=== PATIENT | female | born 1975 | race Caucasian/White ===

== ENCOUNTER 2019-07-10 10:19 | Outpatient (RCR) | payer OTHER, SELFPAY ==
[2019-07-13] MEDS: RHO(D) IMMUNE GLOBULIN 300 MCG SYRINGE IM (15:10)
== END 2019-10-08 23:59 | disposition home or self-care (01) ==
LOC: ANHLAB 10:19
PROVIDERS: Visit Provider Obstetrics & Gynecology
DX: Z29.13 Encounter for prophylactic Rho(D) immune globulin (principal); O36.0990 Maternal care for other rhesus isoimmunization, unspecified trimester, not applicable or unspecified; Z3A.00 Weeks of gestation of pregnancy not specified
CPT/HCPCS: 36415; 36430; 90384; 96372; J2790

== ENCOUNTER 2019-09-01 08:28 | Outpatient (RCR) | payer OTHER, SELFPAY ==
--- NOTE | 2019-08-29 11:00 | PC.NURSE ---
1033- Pt to ultrasound per wheelchair. 1058- Pt returned from ultrasound.
[2019-08-29 11:12] VITALS: BP 110/62; PULSE 76
--- NOTE | ~2019-09-01 | US_ITS ---
. EXAMINATION: US OB limited w BPP DATE: 08/29/2019 10:55 INDICATION: Decelerations. Third trimester. TECHNIQUE: Real-time pelvic ultrasound was performed. COMPARISON: None. FINDINGS: There is a single living fetus in vertex presentation. The placenta is fundal and anterior. he art rate is 132 beats per minute (bpm). The amniotic fluid index is 15.6 cm, which is normal. The following biometric data were obtained: Biparietal diameter (BPD): 8.4 cm; head circumference (HC): 32.4 cm; abdominal circumference (AC): 29 .8 cm; femur length (FL): 6.9 cm. These measurements are concordant. Estimated weight is 2452 g +/- 368 g, which correlates with 33rd percentile when 10/03/19 is use d as estimated date of delivery. As single measurements, these parameters are each equal to the following estimated gestational ages w ith ranges of +/- 2 standard deviations: BPD: 33 weeks 4 days (30 weeks 4 days - 36 weeks 5 days). HC: 36 weeks 4 days (33 weeks 6 days - 39 weeks 2 days). AC: 33 weeks 5 days (30 weeks 5 days - 36 weeks 5 days). FL: 35 weeks 4 days (32 weeks 4 days - 38 weeks 4 days). estimated gestational age based solely on measurements from this exam is 34 weeks 6 days +/- 2 weeks 3 days. Biophysical profile performed by the technologist: breathing (30 sec sustained breathing in 30 minutes): 2 out of 2 movement (3 gross body movements in 30 minutes): 2 out of 2 tone (one episode of iomajpw-igwcesjnj-izmrgfd limb movement): 2 out of 2 Amniotic fluid pocket (2 cm): 2 out of 2 Total score: 8 out of 8 IMPRESSION: 1. Single living fetus in vertex presentation. 2. Estimated weight is 2452 g +/- 368 g, which correlates with 33rd percentile when 10/03/19 is used as estimated date of delivery. 3. Biophysical profile 8 out of 8. Reviewed, dictated and finalized at location A. RELEASE WORKER IMPRESSION: 1. Single living fetus in vertex presentation. 2. Estimated weight is 2452 g +/- 368 g, which correlates with 33rd perc entile when 10/03/19 is used as estimated date of delivery. 3. Biophysical profile 8 out of 8.
[2019-09-01 09:54] VITALS: BP 101/60; PULSE 98
== END 2019-10-04 07:37 | disposition home or self-care (01) ==
LOC: ANHOBOP 08:28
PROVIDERS: Visit Provider Obstetrics & Gynecology
DX: O36.8130 Decreased fetal movements, third trimester, not applicable or unspecified (principal); Z3A.35 35 weeks gestation of pregnancy
CPT/HCPCS: 59025; 76815; 76819

== ENCOUNTER 2019-10-03 06:27 | Inpatient (IN) | payer OTHER, SELFPAY ==
[2019-10-03] VITALS (75 sets, daily range): BP systolic 85–120; BP diastolic 46–79; PULSE 54–131; RESP 14; TEMP 36.7–37.1; O2SAT 98–100; BMI 35.1
--- NOTE | 2019-10-03 07:32 | LDADM ---
This patient, Padmaja Lowe, was admitted to Labor/Delivery/Recovery 103 on 10/03/19 at 06:27. Plans for labor, pain management and were discussed with patient. Patient/family oriented to hospital policies and general routines including ID bracelet, bed and alarms, visiting hours, pain management, procedures, bathroom and other care routines, personal items, smoking policy, room service/diet and guest tray routines, security routines, and visiting hours. Patient/Family are encouraged to report perceived risks to care and to ask questions if they do not understand what they are told or what they should do. See OBIX for further documentation.
[2019-10-03] MEDS: LACTATED RINGERS 1,000 ML 125 ML IV CONT (07:49)
[2019-10-03 08:04] LABS: Basophils Percent Auto 0.5 % (0.2-1.2); Eosinophils Absolute Auto 0.1 K/mm3 (0-0.3); Eosinophils Percent Auto 1.1 % (0-4.4); Hematocrit 33.6 % (37.0-47.0); Hemoglobin 11.2 g/dL (12.0-15.0); Immature Granulocyte Absolute 0.12 K/mm3 (0.00-0.031); Immature Granulocyte Percent A 1.5 % (0-0.5); Lymphocytes Absolute Auto 1.92 K/mm3 (0.9-3.2); Lymphocytes Percent Auto 23.7 % (18.3-44.2); Mean Corpuscular HGB Conc 33.3 g/dl (32-36); Mean Corpuscular Hemoglobin 29.8 pg (26-34); Mean Corpuscular Volume 89.4 fl (80-100); Monocytes Absolute Auto 0.8 K/mm3 (0.1-0.6); Neutrophils Absolute Auto 5.1 K/mm3 (1.3-6.7); Neutrophils Percent Auto 63.2 % (45.5-73.1); Platelet Count Result 216 k/mm3 (150-375); Red Blood Count 3.76 M/mm3 (4.2-5.4); Red Cell Distribution Width 14.2 % (11.5-14.5); White Blood Count 8.1 K/mm3 (4.5-10.0)
--- NOTE | 2019-10-03 08:50 | WPDOBADMIT ---
Obstetrics - Admit Note Admission Note: record reviewed. Additions to the history and/or subsequent changes in the physical findings follow. 43 y8/o at 40 weeks here for induction of labor. GBS neg. AVSS NST reactive TOCO: contractions irregularly ABD soft, nontender, gravid, vertex EXT nontender Cervix 3/50/-2. AROM with clear fluid. IUPC placed. A: IUP at term, desiring induction of labor. P: Oxytocin. Anticipate .
[2019-10-03 09:25] LABS: Rapid Plasma Reagin Non-Reactive (NonReactive)
[2019-10-03] MEDS: SODIUM CHLORIDE 0.9% IV 300 ML 600 ML I-UTERINE (11:23)
--- NOTE | 2019-10-03 12:10 | PM.OBPNLAB ---
Pain Control Date/time seen: 10/03/19 12:54 Comments: Feeling more contractions. Pelvic Exam Dilation (cm): 4 Effacement (%): 50 station: -2 Comments: AVSS NST reactive with occasional variables. TOCO: contractions every 3-5 min Continue labor. Amnioinfusion for occasional variable decelerations.
--- NOTE | 2019-10-03 19:36 | PM.OBPRVD ---
OB - Delivery Note Procedure Delivery date: 10/03/19 Procedure: Induction method: AROM and per pitocin protocol Delivery monitor: external FHT, external uterine and internal FHT Route of delivery: Laceration description: Perineal - 2nd Degree Delivery repair: vicryl (3-0) Specimen: Yes (cord blood) Estimated blood loss (mL): 200 Anesthesia type: Epidural Disposition: PACU Complications: None Narrative: Zzwpn-[id number]-odbt-old 7 para 4024 at 40 weeks gestation who presented to the hospital for induction of labor. Oxytocin was administered intravenously. Amniotomy was performed with return of clear fluid. She received an epidural for pain control. Her labor progressed. Her cervix dilated to 7 cm. She had a sudden urge to push and delivered precipitously. The 's head to the perineum, followed by the body, just as I arrived to the room. The nose and mouth were bulb suctioned. After a delay, the cord was clamped and cut. The infant was handed off the field. Cord blood was collected. The placenta delivered spontaneously and was grossly normal in appearance. The usual 3 vessel cord was noted. A second degree midline perineal laceration was sustained. This was reapproximated using 3 0 Vicryl in the usual layered fashion. Excellent hemostasis resulted as did excellent reapproximation of the normal anatomy. Needle and instrument counts were correct. The patient was taken to recovery room in stable condition. The infant went to the nursery in stable condition. I was present and scrubbed for the entire delivery. Baby Date of : 10/03/19 Time of : 15:09 Weeks of gestation at delivery: 40 gender: Female Weight (pounds): 7 Weight (ounces): 10 presentation: vertex position: Left Occiput Transverse Placenta delivery description: Spontaneous and Normal Configuration cord vessel description: 3 Vessels score one minute: 8 score five minutes: 9
--- NOTE | 2019-10-03 19:38 | P.DS_ITS ---
DS: Diagnosis Discharge Diagnosis (1) (normal spontaneous vaginal delivery): Code(s): O80 - Encounter for full-term uncomplicated delivery Status: Acute Assessment and Plan: IUP at 40 weeks OB - DS: Summary OB Procedures : None OB Procedures Intrapartum: Spontaneous Vag Delivery OB Procedures: : None Time Spent with Patient Time attestation: Total time spent providing and/or coordinating discharge services: DS: Data Data Completed and Pending Labs on day of discharge: Labs from last 24 hours 10/03/19 10/03/19 10/03/19 07:44 07:44 07:44 WBC 8.1 RBC 3.76 L Hgb 11.2 L Hct 33.6 L MCV 89.4 MCH 29.8 MCHC 33.3 RDW 14.2 Plt Count 216 MPV 11.0 H Immature Gran % (Auto) 1.5 H Neut % (Auto) 63.2 Lymph % (Auto) 23.7 [place] % (Auto) 10.0 H Eos % (Auto) 1.1 Baso % (Auto) 0.5 Lymph # (Auto) 1.92 [place] # (Auto) 0.8 H Eos # (Auto) 0.1 Baso # (Auto) 0.0 Abs Immat Gran (auto) 0.12 H Absolute Neuts (auto) 5.1 Absolute Nucleated RBC 0.0 Nucleated RBC % 0.0 RPR Non-reactive Blood Type O Negative Antibody Screen Negative Discharge Plan Discharge Attending physician on discharge: Cullen Beavers Discharging Clinician: Cullen Beavers Patient Disposition: Home, Self-Care Activity: pelvic rest Diet: regular Discharge Instructions: Call or return if temperature above 100.4? F, increased abdominal pain, increased vaginal bleeding or any new problems. Stand Alone Forms: General Discharge Information Follow-up/Referrals: Cullen Beavers MD [Physician] - (6 weeks) Discharge Medications: New ibuprofen 400 mg tablet 400 mg PO Q6H Qty: 30 RF: 0 hydrocodone-acetaminophen [Thayer] 5-325 mg tablet 1 tablet PO Q6H PRN (Reason: pain) Qty: 20 RF: 0 No Action ergocalciferol (vitamin D2) [Vitamin D2] 1,250 mcg (50,000 unit) Capsule 50,000 unit PO WEEKLY RF: 0 PNV cmb#95-ferrous fumarate-FA [] 28 mg iron- 800 mcg Tablet 1 tablet PO DAILY RF: 0 Date of admission: 10/03/19 06:27 Primary Care Provider: Coleman Corey Admitting Provider: Cullen Beavers Attending physician on admission: Cullen Beavers
[2019-10-04 05:35] LABS: Hemoglobin 11.1 g/dL (12.0-15.0)
[2019-10-04 08:40] VITALS: BP 111/61; PULSE 63; RESP 18; TEMP 36.8; O2SAT 98
[2019-10-04] MEDS: MULTIVIT/MIN/PREN/FOL AC/IRON TABLET 1 TAB PO (08:47)
[2019-10-04] MEDS: DOCUSATE SODIUM 100 MG CAPSULE PO (08:47)
--- NOTE | 2019-10-04 08:50 | PM.OBPNVD ---
OB - PN: Subj Subjective Date/time seen: 10/04/19 0850 Narrative: Pain OK. OB - PN: Obj Data Labs CBC & Chem 7: 10/04/19 04:55 Labs: Laboratory Results - last 24 hr 10/04/19 10/04/19 04:55 04:55 Hgb 11.1 L Hct 33.0 L Blood Type O Negative Antibody Screen Negative Screen Negative Baby's Blood Type O pos Baby's SALEEM Negative Doses of RhIg Required 1 OB - PN A/P Plan Comments: A: PPD#1, doing well. P: Routine care. Exam Psych: Other: AVSS ABD soft, nontender, fundus firm EXT nontender
--- NOTE | 2019-10-04 12:00 | PC.NURSE ---
Consulted with patient, mother reports she has tenderness with feeding and a small ridge to nipple when comes off. Discussed may have a shallow latch causing discomfort. Reviewed infant feeding cues, frequencies, duration of feedings, feeding elimination flow sheet, and signs of adequate intake. Demonstrated stimulation techniques to wake infant for feeding. Assisted with to breast. Reviewed positioning/alignment in cross cradle, holding breast in U hold and guided asymmetrical latch on. was able to latch correctly and more deeply. Mother reports she can feel this latch is different and no discomfort. nursed eagerly, with steady draws and frequent swallowing noted. Reviewed signs of a correct latch, effective nursing and suck swallow ratio. was able to maintain latch without discomfort to mother. Nipple care reviewed. Suggested mother continue to hold breast during the entire feeding to assist infant maintaining deep latch. Instructed mother to call out for RN assistance if she is unable to latch for feeding or she has discomfort with nursing. Instructed feeding should be initiated three hours from start of last feeding or if feeding cues are noted before. Mother voiced understanding of information shared.
[2019-10-04] MEDS: RHO(D) IMMUNE GLOBULIN 300 MCG SYRINGE IM (15:17)
[2019-10-04 20:00] VITALS: BP 107/69; PULSE 64; RESP 15; TEMP 36.8; O2SAT 99
[2019-10-05] MEDS: IBUPROFEN 400 MG TABLET PO (05:43)
[2019-10-05] MEDS: MULTIVIT/MIN/PREN/FOL AC/IRON TABLET 1 TAB PO (08:41)
--- NOTE | 2019-10-05 08:58 | PM.OBPNVD ---
OB - PN: Subj Subjective Date/time seen: 10/05/19 08:58 Narrative: Pain OK. Would like to go home. OB - PN: Obj Data Labs CBC & Chem 7: 10/04/19 04:55 Labs: Laboratory Results - last 24 hr 10/04/19 04:55 Blood Type O Negative Antibody Screen Negative Screen Negative Baby's Blood Type O pos Baby's SALEEM Negative Doses of RhIg Required 1 OB - PN A/P Plan Comments: A: PPD#2, doing well. P: Home to f/u 6 weeks. Exam Psych: Other: AVSS ABD soft, nontender, fundus firm EXT nontender
--- NOTE | 2019-10-05 11:13 | PC.NURSE ---
Discharge instructions given to pt. No questions or concerns at this time. Pt wheeled out to awaiting vehicle.
--- NOTE | 2019-10-05 19:15 | PC.NURSE ---
Mother is able to independently latch infant with appropriate positioning/alignment. She denies any nipple discomfort, is feeding as required and waking to feed if needed. has had 8 effective feedings in the past 24 hours, and is currently meeting outcomes for weight, output, jaundice and feeding frequencies. Mother states she feels confident to continue effective at home. Reviewed transition to breast milk, signs of adequate intake, and engorgement/relief. Instructed to call ICP if intake/output less than required. Reviewed regular medications mother is taking. Information provided per Lorelei. Reviewed community resources on the [facility] website and in the Mom/Baby guide. Information on outpatient services provided. Mother has no further questions at this time.
[2019-10-06 10:34] VITALS: BP 108/70; PULSE 64; RESP 20; TEMP 36.9
== END 2019-10-05 11:10 | disposition home or self-care (01) | DRG 807 ==
LOC: ANHLDR 06:33 → ANHOB2 18:35
PROVIDERS: Admitting Provider Obstetrics & Gynecology; PCP Internal Medicine; Visit Provider Obstetrics & Gynecology
DX: O99.02 Anemia complicating childbirth (principal); Z37.0 Single live birth; Z3A.40 40 weeks gestation of pregnancy; D64.9 Anemia, unspecified; O36.8330 Maternal care for abnormalities of the fetal heart rate or rhythm, third trimester, not applicable or unspecified; O70.1 Second degree perineal laceration during delivery
CPT/HCPCS: 36415; 85014; 85018; 85025; 86592; 86850; 86900; 86901; 90384; A9270; J2590; J2790; J7030; J7120

== ENCOUNTER 2021-11-06 10:01 | Outpatient (CLI) | payer BC, SELFPAY ==
--- NOTE | ~2021-11-06 | XR_ITS ---
EXAMINATION: XR chest 2V 11/06/2021 10:24 INDICATION: Shortness of breath PROCEDURE: 2 view chest COMPARISON: 05/27/2017 FINDINGS: The lungs are clear. The cardiomediastinal silhouette is within normal limits. There are no pleural effusions. There is no pneumothorax suspected. IMPRESSION: 1: NO ACUTE CARDIOPULMONARY DISEASE. Reviewed, dictated and finalized at location B.
== END 2021-11-06 10:02 ==
PROVIDERS: PCP Internal Medicine; Visit Provider Physician Assistant
DX: R06.02 Shortness of breath (principal)
CPT/HCPCS: 71046

== ENCOUNTER 2022-03-06 09:19 | Outpatient (CLI) | payer BC, SELFPAY ==
--- NOTE | 2022-03-08 16:20 | P.PCNPFT_ITS ---
PFT Procedure Performed PFT Procedure Performed Spirometry with Pre/Post Bronchodilator Plethysmography (Lung Vol) Diffusing Cap (DLCO) Flow Vol Loop PFT Interpretation DOS: 03/06/2022 REQUESTING: Dr Collado REASON FOR TESTING: Shortness of breath PULMONARY FUNCTION TESTS Results are reliable and reproducible. Spirometry: Pre-bronchodilator FEV1 is 119% predicted, 3.31 L, normal. Pre- bronchodilator FVC is 116% predicted, 3.99 L, normal. FEV1/FVC ratio is 83%, normal. The AGH30-00% is 129% predicted, 3.67 L. After bronchodilator therapy there is no increase in flows. Forced vital capacity decreased by 4%, still in the normal range, 112% predicted, 3.84 L. The FEV1 did not change. The FEF25- 75% increased 10%, 4.04 L. Lung volumes: Total lung capacity is 129%, consistent with mild hyperinflation. ERV is 69%, 0.74 L, normal. Residual volume moderately increased 142%, 2.35 L. RV/TLC is 37% mildly increased. Airway resistance 128% mildly elevated. Diffusion: DLCO 84%. Flow volume loop: Normal. IMPRESSION: Normal spirometry without change after bronchodilator administrat ion, mild hyperinflation, mild air trapping with normal diffusion. No change with bronchodilator. Nonspecific pattern. Tamiko Ortega MD
== END 2022-03-06 09:20 | disposition home or self-care (01) ==
LOC: ANHPFT 09:20
PROVIDERS: PCP Internal Medicine; Visit Provider Internal Medicine Pulmonary Disease
DX: R06.02 Shortness of breath (principal)
CPT/HCPCS: 94060; 94726; 94729

== ENCOUNTER 2022-12-18 11:15 | Outpatient (CLI) | payer BC, SELFPAY ==
[2022-12-18 12:35] LABS: Bacteria Urine 1+ /hpf; Need Manual Microscopic Reviewed; Non Pathogenic Casts 0-2; RBC Urine >100 /hpf (0-2); Squamous Epithelial Cell Urine Moderate /hpf (Few); WBC Urine 51-100 /hpf (0-3)
[2022-12-18 12:36] LABS: Appearance Urine Turbid (Clear); Bilirubin Urine Negative (Negative); Blood Urine 3+ (Negative); Color Urine Orange (Yellow); Glucose Urine UA Negative (Negative); Ketones Urine Negative (Negative); Leukocyte Esterase Ur 2+ LEU/UL (NEGATIVE); Nitrate Urine Negative (Negative); Protein Urine 2+ mg/dL (Negative); Specific Grav Ur 1.012 (1.001-1.035)
[2022-12-18 12:38] LABS: Add Urine Microscopic? YES
== END 2022-12-18 11:16 | disposition home or self-care (01) ==
LOC: ANHLAB 11:17
PROVIDERS: PCP Internal Medicine; Visit Provider Physician Assistant
DX: R30.0 Dysuria (principal)
CPT/HCPCS: 81001; 87086

== ENCOUNTER 2023-03-22 11:30 | Outpatient (CLI) | payer BC, SELFPAY ==
--- NOTE | ~2023-03-22 | XR_ITS ---
AP view of the pelvis and AP and lateral views of the right hip Clinical history: Pain Findings: No acute fracture or dislocation is seen. Osseous alignment is anatomic. Bilateral hip and SI joint spaces are preserved. Soft tissues are unremarkable. Impression: No significant abnormality is seen. Reviewed, dictated and finalized at [facility]. Impression: No significant abnormality is seen.
--- NOTE | ~2023-03-22 | XR_ITS ---
Left Shoulder Technique: AP and scapular Y views were obtained. Clinical History: Pain Findings: No fracture or dislocation is seen. Osseous alignment is anatomic. The glenohumeral and acr omioclavicular joint spaces are preserved. Soft tissues are unremarkable. Impression: Unremarkable left shoulder radiographs. Reviewed, dictated and finalized at [facility]. Impression: Unremarkable left shoulder radiographs.
== END 2023-03-22 11:31 | disposition home or self-care (01) ==
PROVIDERS: PCP Internal Medicine; Visit Provider Physician Assistant
DX: M25.551 Pain in right hip (principal); M25.512 Pain in left shoulder
CPT/HCPCS: 73030; 73502

== ENCOUNTER 2023-07-22 11:16 | Outpatient (CLI) | payer BC, SELFPAY ==
--- NOTE | ~2023-07-22 | XR_ITS ---
2 views of the right clavicle CLINICAL HISTORY: Popping, clicking FINDINGS: No fracture or dislocation seen. Joint spaces appear intact. Soft tissues are unremarkable. IMPRESSION: No significant abnormality seen. Reviewed, dictated and finalized at [facility]. LOTINE TRIMMER
== END 2023-07-22 11:17 | disposition home or self-care (01) ==
PROVIDERS: PCP Internal Medicine; Visit Provider Physician Assistant
DX: Q74.0 Other congenital malformations of upper limb(s), including shoulder girdle (principal)
CPT/HCPCS: 73000

== ENCOUNTER 2023-07-29 12:32 | Outpatient (CLI) | payer BC, SELFPAY ==
--- NOTE | ~2023-07-29 | CT_ITS ---
EXAMINATION: CT cervical spine wo con DATE: 07/29/2023 12:55 INDICATION: Right neck pain. TECHNIQUE: Computed tomography (CT) of the cervical spine was performed without intravenous contrast. Automated exposure control and iterative reconstruction technique were employed. The dose-length pro duct was 322.82 mGy-cm. COMPARISON: None. FINDINGS: There is 6 degrees dextrocurvature of cervical spine. Vertebral body heights and interverte bral disc heights are normal. The following disc levels are specifically discussed: C2-C3: There is no uncovertebral joint osteoarthritis. There is no facet joint osteoarthritis. There is no neural foraminal stenosis. There is no central canal stenosis. C3-C4: There is mild bilateral uncovertebral joint osteoarthritis. There is mild left facet joint ost eoarthritis. There is no neural foraminal stenosis. There is no central canal stenosis. C4-C5: There is no uncovertebral joint osteoarthritis. There is mild left facet joint osteoarthritis. There is no neural foraminal stenosis. There is no central canal stenosis. C5-C6: There is mild left uncovertebral joint osteoarthritis. There is severe left facet joint osteoa rthritis. There is mild left neural foraminal stenosis. There is no central canal stenosis. C6-C7: There is no uncovertebral joint osteoarthritis. There is no facet joint osteoarthritis. There is no neural foraminal stenosis. There is no central canal stenosis. C7-T1: There is no uncovertebral joint osteoarthritis. There is mild right and severe left facet join t osteoarthritis. There is no neural foraminal stenosis. There is no central canal stenosis. IMPRESSION: 1. Mild cervical spondylosis. Reviewed, dictated and finalized at location E. OL BUSINESS ADMINISTRATOR
== END 2023-07-29 12:33 ==
LOC: MICIMG 12:33
PROVIDERS: PCP Physician Assistant; Visit Provider Physician Assistant
DX: M47.892 Other spondylosis, cervical region (principal)
CPT/HCPCS: 72125

== ENCOUNTER 2024-03-09 19:34 | Emergency (ER) | payer BC, SELFPAY ==
[2024-03-09 19:56] VITALS: BP 110/66; PULSE 82; RESP 20; TEMP 36.6; O2SAT 100
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
== END 2024-03-09 20:17 | disposition home or self-care (01) ==
PROVIDERS: Emergency Provider Nurse Practitioner; PCP Physician Assistant
DX: T75.1XXA Unspecified effects of drowning and nonfatal submersion, initial encounter (principal); Y93.16 Activity, rowing, canoeing, kayaking, rafting and tubing
CPT/HCPCS: 99211; G0463

== ENCOUNTER 2024-08-08 08:13 | Outpatient (CLI) | payer BC, SELFPAY ==
--- NOTE | ~2024-08-08 | MMUS_ITS ---
EXAMINATION: MM diagnostic corin BI w evgeny, US breast RT complete HISTORY: Right breast pain and nipple discharge TECHNIQUE: Additional 3-D tomosynthesis images of the breasts were performed and synthetic 2-D images were generated. CAD analysis was submitted and interpreted. High resolution complete right breast ul trasound was performed. COMPARISON: Comparison to multiple prior studies sequentially, with oldest reviewed study dated 06/23. BREAST PARENCHYMAL COMPOSITION: Not dense: There are scattered areas of fibroglandular density. FINDINGS: MAMMOGRAPHIC FINDINGS: There are no suspicious masses, calcifications or architectural distortion in either breast to sugges t malignancy. ULTRASOUND: Complete US of all 4 quadrants of the right breast/s and retroareolar region was reviewed. Normal het erogeneous echotexture without focal solid or cystic mass. IMPRESSION: 1. No evidence for malignancy in either breast. 2. Routine yearly screening mammogram and regular clinical breast examination are recommended. BI-RADS Category 1: Negative Reviewed, dictated and finalized at location B. STANCE SPECIALIST IMPRESSION: 1. No evidence for malignancy in either breast. 2. Routine yearly screening mammogram and regular clinical breast examination a re recommended. BI-RADS Category 1: Negative
== END 2024-08-08 08:14 | disposition home or self-care (01) ==
LOC: MICIMG 08:14
PROVIDERS: PCP Internal Medicine; Visit Provider Obstetrics & Gynecology
DX: N64.4 Mastodynia (principal); N64.52 Nipple discharge
CPT/HCPCS: 76641; 77062; 77066; G0279

== ENCOUNTER 2024-08-14 19:18 | Emergency (ER) | payer BC, SELFPAY ==
--- NOTE | 2024-08-14 19:21 | ED.FEMALEGU ---
HPI - Female Genitourinary General Chief complaint: Urogenital-Female Stated complaint: UTI Time Seen by Provider: 08/14/24 19:32 Source: patient, RN notes reviewed and old records reviewed Mode of arrival: ambulatory Limitations: no limitations History of Present Illness HPI Narrative: 48-year-old female presents to the [facility] with concerns for a UTI. Patient reports frequency, urgency and burning since this afternoon. Recently had urologic since surgery, 2 weeks approximately. Patient denies significant abdominal pain, denies fevers. No back pain. Related Data Home Medications ?Medication ?Instructions ?Recorded ?Confirmed ?Last Taken ?Type fluoxetine 20 mg/5 mL (4 mg/mL) mg 08/14/24 Unknown History oral solution trazodone 50 mg tablet mg 08/14/24 Unknown History Allergies Allergy/AdvReac Type Severity Reaction Status Date / Time codeine AdvReac Intermediate Nausea Verified 08/14/24 19:19 methylprednisolone AdvReac Intermediate PALPATATIONS Verified 08/14/24 19:19 ,LIGHT HEADEDNESS Review of Systems Review of Systems: All systems reviewed & are unremarkable except as noted in HPI and below Constitutional: Constitutional: Reports no additional constitutional complaints ENT: Reports system reviewed and no additional complaints, except as documented Cardiovascular: Cardiovascular: Reports no additional cardiovascular complaints, Denies chest pain and Denies dyspnea Respiratory: Respiratory: Reports no additional respiratory complaints, Denies chest congestion, Denies cough and Denies dyspnea Genitourinary: Genitourinary: Reports as per HPI Musculoskeletal: Musculoskeletal: Reports no additional musculoskeletal complaints Integumentary/Breasts: Skin/Breast: Reports system reviewed and no additional complaints, except as docu [facility] Past Medical History Medical History Cholecystectomy planned (~03/2017) Brain concussion TMJ disease Surgical History Surgical History History of tonsillectomy and adenoidectomy Bariatric surgery status Family History Family History Father Family history of transient ischemic attacks Failure to thrive Mother Family history of lung cancer Family history of malignant neoplasm of breast in first degree relative Sibling Patient's sister is in good health Social History Social History Smoking status: Never smoker Second hand tobacco smoke exposure: No Alcohol intake: current Substance use: never Substance use type: does not use Do You Feel Safe in your Home?: Yes Lack of Transportation: No Lack of Food: Never True Current Housing: Decline to Answer Concerned About Future Housing: Decline to Answer Difficulty Paying Gas/Electric Bills: Decline to Answer Difficulty Paying for Meds: Decline to Answer Currently Unemployed: Decline to Answer Education: Decline to Answer Difficulty w/ Childcare or Family Care: Decline to Answer Living arrangements: with family Occupation/Education: occupation Additional occupation/education comments: [email or web address] Gender identity (if verbalized by the patient): Female Spiritual care concerns: No Comments At the time of my signature, I reviewed and agree with the nursing past medical, surgical, social, and family history. There is no relevant family history pertinent to the patient complaint. Exam Const: General: cooperative, healthy appearing, comfortable, no acute distress, well developed, alert and well nourished Nutritional Appearance: well nourished Orientation/consciousness: patient oriented x3 Limitations: no limitations HENMT: Head: normal to inspection Face and sinus: normal facial exam and face symmetric Eyes: General: appearance normal, both eyes and all related structures Neck: Neck: normal visual inspection, full ROM, no lymphadenopathy and no meningeal signs Chest: Chest palpation & inspection: normal inspection of the chest Resp: Effort & Inspection: normal respiratory effort and able to speak in complete sentences Cardio: Rate: regular rate GI: GI Palp: No abdominal tenderness : General: Yes no CVA tenderness Skin: General skin exam: normal color and no rashes or lesions noted Neuro: General: patient oriented x3, gait normal, moves all extremities and no meningeal signs Cognition (Neuro): normal cognition Speech: normal speech Gait exam (Neuro): Normal gait present Extrem: General: normal to inspection, full ROM, capillary refill normal and normal gait Psych: Appearance: grossly normal and well kempt Mental Status: mental status grossly normal Speech and movement: Normal speech and movement present and Clear speech present Affect: normal affect Attitude: cooperative Course Course Level of Care: Express Care Visit Vital Signs Vital signs: Vital Signs Temperature 97.9 F 08/14/24 19:34 Pulse Rate 59 L 12/23/24 19:34 Respiratory Rate 16 08/14/24 19:34 Blood Pressure 126/73 08/14/24 19:34 Pulse Oximetry 99 08/14/24 19:34 Oxygen Delivery Room Air 08/14/24 19:34 Temperature 97.9 F 08/14/24 19:34 Pulse Rate 59 L 08/14/24 19:34 Respiratory Rate 16 08/14/24 19:34 Blood Pressure 126/73 08/14/24 19:34 Pulse Oximetry 99 08/14/24 19:34 Oxygen Delivery Room Air 08/14/24 19:34 Reviewed MDM - Female Genitourinary MDM Narrative Medical decision making narrative: Patient sitting comfortably in exam room. Nontoxic, vitals stable. Patient presents with concerns for UTI. Positive leukocytes, positive blood, patient appropriate for outpatient treatment with antibiotic and close follow-up, will culture. Discharge instructions reviewed with patient, as well as provided in writing per nursing staff. The instructions also include specific and strict return/GO TO THE ER as well as f/u information. All questions have been answered, and the patient deny any further questions with discharge and discharge plan. Some parts of this dictation were generated by voice recognition software and may contain typographical and/or grammatical inaccuracies. Differential Diagnosis Differential diagnosis: Likely urinary tract infection and cystitis Lab Data Labs: Lab Results 08/14/24 Range/Units 19:35 POC Urine Color Yellow POC Urine Clarity Clear POC Urine pH 7.0 POC Ur Specif [place] 1.025 POC Urine Protein 1+ (Negative) POC Ur Glucose (UA) Negative (Negative) POC Urine Ketones Negative (Negative) POC Urine Blood 1+ (Negative) POC Urine Nitrite Negative (Negative) POC Urine Bilirubin Negative (Negative) POC Urine Urobilinogen 1.0 POC U Leukocyte Esteras 3+ (Negative) Reviewed Critical Care Time Critical Care Time Critical Care Time: No Discharge Plan Discharge Clinical Impression: Urinary tract infection Qualifiers: Urinary tract infection type: acute cystitis Hematuria presence: with hematuria Qualified Code(s): N30.01 - Acute cystitis with hematuria Patient Disposition: Home, Self-Care Condition: Stable Instructions: Antibiotic Form, Urinary Tract Infection in Women (ED) Additional Instructions: Follow-up with your urologist Follow-up with primary care provider Take antibiotics as prescribed While on antibiotics is important to eat a yogurt a day or take a probiotic to reduce some side effects Increased water intake Take Tylenol as needed for pain Today your urine dip showed a probability of a UTI. You have been prescribed an antibiotic. Your urine will be sent to our lab for a culture. If at that time a bacteria grows that is not covered by the antibiotic prescribed you will be notified. Follow-up with primary care For new or worsening symptoms go directly to the emergency room Patient Language: Romansh Prescriptions: New amoxicillin-pot clavulanate 875-125 mg tablet 1 tablet PO Q12H Qty: 10 0RF No Action fluoxetine 20 mg/5 mL (4 mg/mL) solution trazodone 50 mg tablet famotidine 40 mg tablet 40 mg PO DAILY Qty: 90 2RF ergocalciferol (vitamin D2) 1,250 mcg (50,000 unit) capsule 1,250 mcg PO WEEKLY Qty: 12 0RF ferrous sulfate 325 mg (65 mg iron) tablet 325 mg PO DAILY Qty: 90 1RF Follow-up/Referrals: Jerzy Colunga DO [Primary Care Provider] - 1 Week ([facility] follow-up) Time of Disposition: 19:38
[2024-08-14 19:34] VITALS: BP 126/73; PULSE 59; RESP 16; TEMP 36.6; O2SAT 99
[2024-08-14 19:37] LABS: EDUAAPPEAR Clear; EDUABILI Negative (Negative); EDUABLOOD 1+ (Negative); EDUACOLOR1 Yellow; EDUAGLUCOSE Negative (Negative); EDUAKETONE Negative (Negative); EDUALEUKO 3+ (Negative); EDUANITRATE Negative (Negative); EDUAPROTEIN 1+ (Negative); EDUASPGRAVITY 1.025
== END 2024-08-14 19:42 | disposition home or self-care (01) ==
PROVIDERS: Emergency Provider Nurse Practitioner; PCP Internal Medicine
DX: N30.01 Acute cystitis with hematuria (principal); Z79.899 Other long term (current) drug therapy
CPT/HCPCS: 81003; 87086; 99213; G0463

== ENCOUNTER 2025-06-21 11:36 | Outpatient (CLI) | payer BC, SELFPAY ==
--- NOTE | ~2025-06-21 | XR_ITS ---
EXAMINATION: XR knee RT 3V, 06/21/2025 11:54 CDT HISTORY: M25.569 - Pain in unspecified knee COMPARISON: No comparisons available. Findings: No acute fracture or malalignment. No significant degenerative changes. Soft tissues unremarkable. Impression: No acute fracture or malalignment. Reviewed, dictated and finalized at location P. Impression: No acute fracture or malalignment.
--- OUTSIDE RECORDS SUMMARY | 2025-06-21 12:46 | XMS_ITS | Clinical Summary ---
Author Organization [facility] [place] [address] Address [address] [place] [address] Care Team Providers Care General Dentist/Owner Name Role Phone Coleman Corey MD Primary Care Provider [phone] Allergies Active Allergy Reactions Criticality Noted Date Comments Codeine Nausea only Low 03/19/2017 Social History Tobacco Use Types Packs/Day Years Used Date Smoking Tobacco: Never Assessed Personal Safety Answer Date Recorded Getting School Help Needed Not on file 11/06 Comments Unknown Sex and Gender Information Value Date Recorded Sex Assigned at Not on file Legal Sex Female 10:21 AM CDT Gender Identity Not on file Sexual Orientation Not on file Last Filed Vital Signs Vital Sign Reading Time Taken Comments Blood Pressure - - Pulse - - Temperature - - Respiratory Rate - - Oxygen Saturation - - Inhaled Oxygen Concentration - - Weight 113.4 kg (250 lb) 03/19/2017 2:11 PM CDT Height 162.6 cm (5' 4) 03/19/2017 2:11 PM CDT Body Mass Index 42.91 03/19/2017 2:11 PM CDT Plan of Treatment Not on file Insurance CHO[employer] PLUS Care Teams General Dentist/Owner Relationship Specialty Start Date End Date Coleman Corey MD [address] [facility] [address] [place] [address] PCP - General Internal Medicine 03/03/17
--- OUTSIDE RECORDS SUMMARY | 2025-06-21 12:46 | XMS_ITS | Clinical Summary ---
Author Organization [facility] Administrative Offices Address [address] [place] [address] Care Team Providers Care Appliance Assembler Name Role Phone Unavailable Primary Care Provider Unavailabl e Allergies Active Allergy Reactions Criticality Noted Date Comments Codeine Nausea and Vomiting High 09/16/2010 Medications cyclobenzaprine (FLEXERIL) 10 mg tablet TAKE 1 TABLET BY MOUTH EVERY DAY AT BEDTIME NEEDED FOR MUSCLE SPASMS 10/14/2021 Active melatonin 3 mg Tablet Take by mouth nightly as needed for Insomnia. Active calcium citrate-vitamin D3 (CITRACAL WITH VIT D) 200 mg-6.25 mcg (250 unit) Tablet Take by mouth. Active multivitamin,tx -iron-ca-min (THERA-M) 27-0.4 mg Tablet Take 1 Tablet by mouth daily. Active ondansetron (ZOFRAN ODT) 4 mg Tablet, Rapid Dissolve Take 1 Tablet (4 mg) by mouth every 8 hours as needed for Nausea/Emesis . Dissolve tablet on top of tongue, then swallow with saliva. 30 Tablet 1 01/30/2022 Active FLUoxetine (PROzac) 20 mg capsule Take 20 mg by mouth daily. 02/19/2022 Active Active Problems Problem Noted Date Diagnosed Date Atherosclerotic heart diseas e of [place] coronary artery without angina pectoris 12/10/2021 Palpitations 12/10/2021 Obesity 06/07/2008 Family History Medical History Relation Name Comments Bipolar Disorder Father Kidney Disease Father Stroke Father Breast Cancer Mother Lung Cancer Mother Colon Cancer Neg Hx Ovarian Cancer Neg Hx Pancreatic Cancer Neg Hx Prostate Cancer Neg Hx Uterine Cancer Neg Hx Relation Name Status Comments Father Mother Social History Tobacco Use Types Packs/Day Years Used Date Smoking Tobacco: Never Smokeless Tobacco: Never Alcohol Use Standard Drinks/Week Comments Yes 1 (1 standard drink = 0.6 oz pur e alcohol) Comments No Sex and Gender Information Value Date Recorded Sex Assigned at Not on file Legal Sex Female 10:41 PM CDT Gender Identity Not on file Sexual Orientation Not on file Last Filed Vital Signs Vital Sign Reading Time Taken Comments Blood Pressure 118/68 03/03/2022 10:57 AM CDT Pulse 75 12/25/2021 2:02 PM CDT Temperature 36.3 C (97.4 F) 12/25/2021 2:02 PM CDT Respiratory Rate - - Oxygen Saturation 99% 12/25/2021 2:02 PM CDT Inhaled Oxygen Concentration - - Weight 82.1 kg (181 lb) 03/03/2022 10:57 AM CDT Height 160 cm (5' 3) 03/03/2022 10:57 AM CDT Body Mass Index 32.06 03/03/2022 10:57 AM CDT Plan of Treatment Health Maintenance Due Date Last Done Comments DTAP/TDAP/TD VACCINES (1 - Tdap) 12/08/1994 HEPATITIS B VACCINES (1 of 3 - 19+ 3-dose series) 11/21 HPV/Cotest (21-29) 12/08/1996 CERVICAL CANCER SCREENING 12/08/2005 HPV/Cotest (30-65) 12/08/2005 PAP SMEAR 12/08/2005 BREAST CANCER SCREENING 2015 COLORECTAL SCREENING 12/08/2020 Colorectal Cancer Screening 12/08/2020 FIT-DNA Q 3 years 12/08/2020 FIT/FOBT Q 1 year 12/08/2020 Flex Sig/CT Colonography Q 5 years 12/08/2020 INFLUENZA VACCINE (#1) 2025 Insurance [facility] BLUE ACCESS CHOICE
--- OUTSIDE RECORDS SUMMARY | 2025-06-21 12:46 | XMS_ITS | Clinical Summary ---
Author Organization [facility] Address [address] [place] [id number] Care Team Providers Care Baggage Handling Supervisor Name Role Phone Vinicio Prajapati MD Primary Care Provider [phone] Social History Tobacco Use Types Packs/Day Years Used Date Smoking Tobacco: Never Assessed Comments Unknown Sex and Gender Information Value Date Recorded Sex Assigned at Not on file Legal Sex Female 7:10 PM CDT Gender Identity Not on file Sexual Orientation Not on file Plan of Treatment Health Maintenance Due Date Last Done Comments Cervical Cancer Screening Pa p Smear (Age 30 to 64) Every 3 Years 1975 Colorectal Cancer Screening Colonoscopy (10 Years) 1975 Annual Physical 12/08/1978 Hepatitis C 12/08/1993 DTaP, Tdap and Td Vaccines ( 1 - Tdap) 12/08/1994 Hepatitis B Vaccines (1 of 3 - 19+ 3-dose series) 12/08/1994 Cervical Cancer Screening Pa p with HPV Testing (Age 30 to 64) Every 5 Years 12/08/2005 Cervical Cancer Screening with HPV 12/08/2005 Mammogram Screening 2015 COVID-19 Vaccine (2024-2 6 season) 2025 Influenza Adult (#1) 2025 Hepatitis A Vaccines Aged Out No long er eligible based on patient's age to complete this topic Meningococcal B Vaccine Aged Out No l onger eligible based on patient's age to complete this topic Meningococcal Vaccine Aged Out No jana gray eligible based on patient's age to complete this topic Pneumococcal Vaccine: Pediat rics (0 to 5 Years) and At-Risk Patients (6 to 49 Years) Aged Out No longer eligible b ased on patient's age to complete this topic RSV Immunizations Under 20 Months Aged Out No longer eligible based on patient's age to complete this topic Care Teams Baggage Handling Supervisor Relationship Specialty Start Date End Date Vinicio Prajapati MD [address] [place] [address] PCP - General 06/09/13
== END 2025-06-21 11:37 | disposition home or self-care (01) ==
LOC: ANHIMG 11:38
PROVIDERS: PCP Internal Medicine; Visit Provider Internal Medicine
DX: M25.561 Pain in right knee (principal)
CPT/HCPCS: 73562

== ENCOUNTER 2025-08-04 07:07 | Outpatient (CLI) | payer BC, SELFPAY ==
--- NOTE | ~2025-08-04 | MR_ITS ---
EXAMINATION: MR knee RT wo con DATE: 08/04/2025 07:37 INDICATION: Right knee pain and popping. TECHNIQUE: Magnetic resonance imaging (MRI) of the right knee was performed without intravenous contrast. Sequences included axial PD-weighted FS FSE, coronal PD-weighted FSE and PD-weighted FS FSE, sagittal PD-weighted FSE, and sagittal T2-weighted FS FSE. COMPARISON: Right knee radiographs 06/21/2025 FINDINGS: Medial compartment: Medial meniscus is normal. There is cartilage surface irregularity of femoral condyle and tibial condyle. There are tiny osteophytes. Lateral compartment: The lateral meniscus is normal. There is deep partial-thickness cartilage loss of tibial condyle involving the central articular surface. There is deep partial-thickness cartilage loss of femoral condyle involving the posterior articular surface. Patellofemoral compartment: There is deep partial-thickness cartilage loss of patellar medial facet and median ridge and full-thickness cartilage loss of patellar lateral facet with mild subchondral edema-like marrow signal intensity. There is shallow partial- thickness cartilage loss of trochlea. Ligaments and tendons: The anterior and posterior cruciate ligaments are normal. There are changes of prior sprains of medial collateral ligament and lateral collateral ligament characterized by thickening and increased signal proximally. There is mild patellar tendinopathy. Fluid: There is a small knee joint effusion. There is mild prepatellar and superficial infrapatellar bursitis. IMPRESSION: 1. Severe chondrosis of patellofemoral compartment, moderate chondrosis of lateral compartment, and mild chondrosis of medial compartment. 2. Small knee joint effusion. Reviewed, dictated and finalized at location E. OR AGENT IMPRESSION: 1. Severe chondrosis of patellofemoral compartment, moderate chondrosis of late ral compartment, and mild chondrosis of medial compartment. 2. Small knee joint effusion.
== END 2025-08-04 07:08 | disposition home or self-care (01) ==
LOC: CHSIMG 07:08
PROVIDERS: PCP Internal Medicine; Visit Provider Internal Medicine
DX: M25.561 Pain in right knee (principal); M22.41 Chondromalacia patellae, right knee; M25.461 Effusion, right knee
CPT/HCPCS: 73721

== ENCOUNTER 2025-08-06 18:25 | Emergency (ER) | payer BC, SELFPAY ==
[2025-08-06 18:33] VITALS: BP 112/65; PULSE 78; RESP 18; TEMP 36.8; O2SAT 100
--- NOTE | 2025-08-06 18:59 | ED.FEMALEGU ---
HPI - Female Genitourinary General Chief complaint: Urogenital-Female Stated complaint: UTI SYMPTOMS Source: patient and RN notes reviewed Mode of arrival: ambulatory Limitations: no limitations History of Present Illness HPI Narrative: 49-year-old female presents Express Care complaining of urinary symptoms for for days. Patient reports having dysuria, increased frequency, hesitancy, suprapubic pressure, chills, nausea. Patient denies any fevers, abdominal pain, body aches, vomiting, diarrhea, blood in her urine, or any other symptoms. Patient has not taken anything [id number] for symptoms. Patient denies any significant past medical history. Patient recently treated for urinary tract infection approximately 2 weeks ago, she was started on Macrobid, she stopped taking after she started feeling better she said. Related Data Home Medications ?Medication ?Instructions ?Recorded ?Confirmed ?Last Taken ?Type trazodone 50 mg tablet mg 08/14/24 06/21/25 Unknown History fluoxetine 10 mg capsule 10 mg PO DAILY 04/24/25 08/06/25 Unknown History fluoxetine 20 mg capsule 20 mg PO DAILY 04/24/25 08/06/25 Unknown History atomoxetine 60 mg capsule 60 mg PO DAILY 06/21/25 08/06/25 Unknown History Allergies Allergy/AdvReac Type Severity Reaction Status Date / Time codeine AdvReac Intermediate Nausea Verified 08/06/25 18:31 methylprednisolone AdvReac Intermediate PALPATATIONS Verified 08/06/25 18:31 ,LIGHT HEADEDNESS Review of Systems Review of Systems: CONSTITUTIONAL: Denies fever, body aches, or sweats. Positive for chills EYES: Denies visual changes, redness, or discharge. ENT: Denies rhinorrhea, congestion, sore throat, or otalgia. CARDIOVASCULAR: Denies chest pain, palpitations, or edema. RESPIRATORY: Denies cough or dyspnea. GASTROINTESTINAL: Denies abdominal pain, vomiting, or diarrhea. Positive for nausea GENITOURINARY: Positive for dysuria, increased frequency, hesitancy, suprapubic pressure. Negative for hematuria. SKIN: Denies rash or itching. MUSCULOSKELETAL: Denies back pain, joint pain, or myalgia. NEUROLOGIC: Denies headache, numbness, or weakness. PSYCHIATRIC: Denies anxiety or depression. All other systems reviewed are negative, except as documented in HPI. [facility] Past Medical History Medical History (Updated 08/06/25 @ 18:55 by Esteban James APRN) SARAH (obstructive sleep apnea) RUQ pain PVCs (premature ventricular contractions) Postcoital bleeding Palpitations Pain of both elbows Other fatigue Orthopnea Myalgia Low iron Leg cramps History of elevated glucose Generalized abdominal pain Gastro-esophageal reflux disease without esophagitis Dorsalgia Dizziness and giddiness Adult general medical exam Cholecystectomy planned (~03/2017) Brain concussion TMJ disease Surgical History Surgical History (Updated 04/24/25 @ 11:19 by Mallorie Snyder) S/P gastric bypass History of tonsillectomy and adenoidectomy Bariatric surgery status Family History Family History Father Family history of transient ischemic attacks Failure to thrive Mother Family history of lung cancer Family history of malignant neoplasm of breast in first degree relative Sibling Patient's sister is in good health Social History Social History Smoking status: Never smoker Second hand tobacco smoke exposure: No Alcohol intake: current Substance use: never Substance use type: does not use Lack of Transportation: No Lack of Food: Never True Current Housing: Decline to Answer Concerned About Future Housing: Decline to Answer Difficulty Paying Gas/Electric Bills: Decline to Answer Difficulty Paying for Meds: Decline to Answer Currently Unemployed: Decline to Answer Education: Decline to Answer Difficulty w/ Childcare or Family Care: Decline to Answer Living arrangements: with family Occupation/Education: occupation Additional occupation/education comments: [employer] Gender identity (if verbalized by the patient): Female Spiritual care concerns: No Comments At the time of my signature, I reviewed and agree with the nursing past medical, surgical, social, and family history. There is no relevant family history pertinent to the patient complaint. Exam Narrative: GENERAL: This is a well-nourished, well-developed adult, in no apparent distress. They are non ill-appearing, nontoxic appearing. HEAD: normocephalic, atraumatic. EYES: Sclera clear/white. Vision is grossly intact. Conjunctiva normal bilaterally. Extraocular movements intact. EARS: External ears normal,Hearing grossly intact. NOSE: External nose normal THROAT: Mucous membranes moist NECK: Normal range of motion CARDIOVASCULAR: Regular rate and rhythm. Normal S1-S2. No clicks, gallops, rubs, murmurs. RESPIRATORY: Respiratory rate normal, respiratory effort nonlabored, no respiratory distress. Lung sounds clear to auscultation throughout. Lung sounds equal bilaterally. No adventitious lung sounds. GASTROINTESTINAL: Abdomen soft, flat, non-tender, nondistended. Bowel sounds are active. No hepato-splenomegaly, or palpable masses. No guarding rigidity. No rebound tenderness. SKIN: warm, Dry, intact with no suspicious lesions or rash, good texture and turgor. NEURO: awake, alert, and oriented to person, place and time. There were no obvious focal neurologic abnormalities. EXTREMITIES: No joint tenderness, effusion, or edema noted. BACK: Nontender without deformity. No CVA tenderness. Course Course Level of Care: Express Care Visit Vital Signs Vital signs: Vital Signs Temperature 98.3 F 08/06/25 18:33 Pulse Rate 78 08/06/25 18:33 Respiratory Rate 18 08/06/25 18:33 Blood Pressure 112/65 08/06/25 18:33 Pulse Oximetry 100 08/06/25 18:33 Oxygen Delivery Room Air 08/06/25 18:33 Temperature 98.3 F 08/06/25 18:33 Pulse Rate 78 08/06/25 18:33 Respiratory Rate 18 08/06/25 18:33 Blood Pressure 112/65 08/06/25 18:33 Pulse Oximetry 100 08/06/25 18:33 Oxygen Delivery Room Air 08/06/25 18:33 [facility] MDM Narrative Medical decision making narrative: Urine dipstick shows evidence of urinary tract infection. Urine culture pending. Symptoms clinically consistent urinary tract infection. Will treat with Bactrim, and discussed importance medication adherence finish the course completely even if she starts to feel better. Patient verbalized understanding. Patient nontoxic appearing, no apparent distress, no CVA tenderness. Discussed physical exam findings. Advised supportive measures and signs/symptoms to go to the ER. Pt is appropriate for outpt treatment and f/u. Differential Diagnosis Differential Diagnosis: Urinary tract infection, pyelonephritis, cystitis Discharge Plan Discharge Clinical Impression: Urinary tract infection Qualifiers: Urinary tract infection type: site unspecified Hematuria presence: with hematuria Qualified Code(s): N39.0 - Urinary tract infection, site not specified Patient Disposition: Home Condition: Stable Instructions: Antibiotic Form, Urinary Tract Infection in Women (ED) Additional Instructions: Take the antibiotic as prescribed The urine will be sent of for a culture to identify what type of bacteria is causing your infection. If the culture shows that the antibiotic will not get rid of your infection, you will be notified and a new antibiotic will be called in for you. Increase water intake you will need to follow up with your PCP 3-5 days. Go to the ER for any worsening symptoms, abdominal pain, flank pain, fevers, nausea, vomiting, or any other concerns Patient Language: Kazakh Prescriptions: New sulfamethoxazole-trimethoprim [Bactrim DS] 800-160 mg tablet 1 tablet PO Q12H 5 Days Qty: 10 0RF No Action trazodone 50 mg tablet fluoxetine 10 mg capsule 10 mg PO DAILY fluoxetine 20 mg capsule 20 mg PO DAILY atomoxetine 60 mg capsule 60 mg PO DAILY ferrous sulfate 325 mg (65 mg iron) tablet 325 mg PO DAILY Qty: 90 1RF famotidine 40 mg tablet See Rx Instructions .ROUTE .COMPLEX Qty: 90 0RF Dose Instruction: TAKE 1 TABLET BY MOUTH EVERY DAY Rx Instructions: TAKE 1 TABLET BY MOUTH EVERY DAY Follow-up/Referrals: Jerzy Colunga DO [Primary Care Provider, Internal Medicine] Time of Disposition: 18:55
[2025-08-06 19:01] LABS: EDUAAPPEAR Cloudy; EDUABILI Negative (Negative); EDUABLOOD 2+ (Negative); EDUACOLOR1 Yellow; EDUAGLUCOSE Negative (Negative); EDUAKETONE Negative (Negative); EDUALEUKO Trace (Negative); EDUANITRATE Negative (Negative); EDUAPH 7.0; EDUAPROTEIN Negative (Negative); EDUASPGRAVITY 1.020; EDUAUROBILI 1.0
== END 2025-08-06 19:00 | disposition home or self-care (01) ==
PROVIDERS: PCP Internal Medicine
DX: N39.0 Urinary tract infection, site not specified (principal); K21.9 Gastro-esophageal reflux disease without esophagitis; Z98.84 Bariatric surgery status
CPT/HCPCS: 81003; 87086; 99213; G0463